=== PATIENT | female | born 1975 | race Caucasian/White ===

== ENCOUNTER 2021-06-20 11:10 | Emergency (ER) | payer MEDICAID, OTHER ==
[~2021-06-20] VITALS: Ht 157.5 cm; Wt 61.4 kg
[2021-06-20 11:14] VITALS: BP 129/67
[2021-06-20 11:27] LABS: COVID AG,FIA SOURCE NASAL SWAB
== END 2021-06-20 12:15 | disposition home or self-care (01) ==
LOC: EMS 11:15
DX: U07.1 COVID-19 (principal)
CPT/HCPCS: 87426; 99283; U0003